=== PATIENT | male | born 1960 | race Caucasian/White ===

== ENCOUNTER 2017-04-26 11:27 | Emergency (ER) | payer MEDICAID ==
[2017-04-26 11:54] VITALS: BP 152/98
--- NOTE | 2017-04-26 12:37 | ERNOTE ---
Medical Problem HPI - Narrative Date of Service: 04/26/17 - General Chief Complaint: Screening, Suture/Wound Time Seen by Provider: 04/26/17 12:30 Source: patient, RN notes reviewed Exam Limitations: no limitations - Immun/Allergies/Home Medications Immunizations: IMMUNIZATION HX Immunizations Up to Date Yes History of Influenza Vaccine No Allergies/Adverse Reactions: Allergies No Known Allergies Allergy (Verified 04/26/17 11:54) Home Medications: HOME MEDICATIONS Albuterol Sulfate/Ipratropium [Duoneb 2.5-0.5MG/3ML Soln] 3 ml IH Q6H PRN #60 nebu 11/22/16 [Last Taken Unknown] Cefdinir [Omnicef] 300 mg PO DAILY 11/22/16 [Last Taken Unknown] Glimepiride 4 mg PO DAILY 11/22/16 [Last Taken Unknown] Ipratropium/Albuterol Sulfate [Combivent Respimat Inhal [place]] 4 gm IH QID 11/22 [Last Taken Unknown] Loratadine/Pseudoephedrine [Claritin-D 24 Hour Tablet] 1 each PO DAILY 11/22/16 [Last Taken Unknown] Nebulizer [Compact Compressor Nebulizer] 1 each MC Q4H #1 kit 11/22/16 [Last Taken Unknown] glipiZIDE [Glipizide Xl] 10 mg PO DAILY 11/22/16 [Last Taken Unknown] metFORMIN HCL [Metformin HCl ER] 1,000 mg PO BID 11/22/16 [Last Taken Unknown] metFORMIN HCL [Metformin HCl ER] 500 mg PO DAILY 11/22/16 [Last Taken Unknown] predniSONE [Prednisone] 2 tab PO DAILY #14 tab 11/22/16 [Last Taken Unknown] predniSONE [Prednisone] 20 mg PO DAILY 11/22/16 [Last Taken Unknown] - History of Present History Narrative: James is a 57-year-old male who presents to the emergency department for concerns about infection in his surgical sites. He underwent a left nephrectomy on April 05 at the [facility] for a renal carcinoma. He reports that his incisions have been healing well with the exception of one laparoscopic wound that appears to be red. He states that he has been feeling well. He denies any fevers or chills. He did contact his surgeon's office today and was directed to come here for evaluation. Review of Systems - Review of Systems Constitutional: Absent: fever, chills, weakness, malaise EYE: Present: no symptoms reported ENT: Present: no symptoms reported Respiratory: Absent: shortness of breath, cough Cardiology: Absent: chest pain, edema Gastrointestinal/Abdominal: Absent: nausea, vomiting, abdominal pain, eating less, drinking less Genitourinary: Present: no symptoms reported Musculoskeletal: Absent: muscle pain, joint pain Skin: Present: change in color. Absent: rash, lesions Neurological: Absent: headache, dizziness/light-headedness Endocrine: Present: no symptoms reported Hematologic/Lymphatic: Present: no symptoms reported Psych: Present: anxiety - Patient's Past Medical History Patient History - Medical: Diabetes Type 2, GERD, Obesity Patient History - Cardiac/Respiratory: COPD, Hypertension Patient History - Cancer: Kidney Patient History - Surgical Procedures: Cancer Surgery - Left nephrectomy, T & A Patient History - Other: None - Social History Living Situations: home Psych History: No pertinent hx Smoking Status: Former smoker Patient requests Smoking Cessation Consult: No Initiate information on Smoking Cessation: No Alcohol Use: occasionally Drug Use: none - Immunizations Immunizations Up to Date: Yes History of Influenza Vaccine: No Physical Exam - Physical Exam General Appearance: Present: wd/wn, alert, no apparent distress, obese Respiratory: Present: no respiratory distress, normal breath sounds, no accessory muscle use, lungs clear Cardiovascular/Chest: Present: regular rate, rhythm, no murmur Gastrointestinal/Abdominal: Present: nondistended, soft Extremity Exam: Present: normal inspection, normal range of motion Neurological Exam: Present: alert, oriented, normal mood/affect, no motor/ sensory deficits Skin Exam: Present: normal color, warm/dry, other - abdominal incisions are all healing well - one laprascopic wound has slightly more surrounding inflammation , no drainage, no induration, not excessively warm to touch ED Progress - Vital Signs Patient's Vital Signs:: I have reviewed the patient's vital signs. Vital Signs: Vital Signs 04/26/17 11:47 Temperature 36.6 C Pulse Rate 112 H Respiratory 16 Rate Blood Pressure 152/98 O2 Sat by Pulse 95 Oximetry - Progress/Reassessment Chief Complaint: Screening, Suture/Wound Progress:: Unchanged Plan - Plan Plan: Reassured patient that the amount of inflammation surrounding the laprascopic wound that he is concerned about is still within the limits of what I would normally expect at this point. Patient has been doing well. Is afebrile. To f/u with his surgeon as scheduled, but discussed indications of worsening condition that would warrant being seen sooner. Departure - Departure Clinical Impression: Encounter for postoperative wound check Disposition: Home Follow Up Needed Condition: Good Additional Instructions: Continue cleaning wounds as directed See your surgeon as scheduled, or follow up before if you have new or worsening symptoms Referrals: Pollo Sepulveda, [Primary Care Provider] -
--- OUTSIDE RECORDS SUMMARY | 2017-04-26 15:23 | XMS REPORT | Continuity of Care Document ---
:1960 Author Organization [facility] ([facility]) Address [address] [place] [address] Phone [phone] Care Team Providers Name Role Phone Pollo Sepulveda Primary Care Provider [phone] Source Comments This disclosure is being made pursuant to the Care Everywhere program, applicable federal and state laws, and may not contain all informaitonavailable regarding this patient.[facility] ([facility]) Active Allergies and Adverse Reactions No Known Allergies Current Medications Prescription Sig. Disp. Refills Start Date End Date Status metFORMIN 1,000 mg TAKE ONE TABLET 2 12/31/2016 Active tablet BY MOUTH IN THE MORNING AND IN THE EVENING COMBIVENT RESPIMAT inhale 1 puff 4 5 12/31/2016 Active 20-100 times daily. april mcg/actuation take additional inhaler puff as needed. not to exceed 6 puffs in 24 hours albuterol-ipratrop inhale 3 0 01/25/2017 Active ium 2.5-0.5 mg/3 milliliters by mL inhalation nebulization solution route 4 times per day glimepiride 4 mg take 2 tablet (8 5 01/14/2017 Active tablet mg) by oral route once daily for 30 days omeprazole PO Take 40 mg by Active mouth daily. loratadine-pseudoe Take 1 tablet by Active phedrine 10-240 mg mouth daily. per XR tablet (24 hour) lisinopril 10 mg Take 1 tablet (10 30 tablet 0 03/15/2017 Active tablet mg total) by mouth daily. OTHER Take 1 tablet by Active mouth 2 times daily. Hempt Extract multivitamin Take 1 tablet by Active tablet mouth daily. budesonide-formote Use 2 Puffs by 10.2 g 11 04/01/2017 Active rol (SYMBICORT) inhalation 2 160-4.5 times daily. mcg/Actuation inhaler docusate 100 mg Take 1 capsule 50 capsule 1 04/08/2017 Active capsule (100 mg total) by mouth 2 times daily. HYDROmorphone 2 mg Take 1-2 tablets 60 tablet 0 04/08/2017 Active tablet (2-4 mg total) by mouth every 4 hours as needed for pain. sennosides 8.6 mg Take 1-2 tablets 50 tablet 1 04/08/2017 Active tablet (8.6-17.2 mg total) by mouth 2 times daily. budesonide Use 2 Puffs by 04/01/20 Discontinued (PULMICORT inhalation 2 17 FLEXHALER) 180 times daily. mcg/Inhalation inhaler Active Problems Problem Noted Date Renal cell carcinoma of left kidney 04/05/2017 HARLAN (obstructive sleep apnea) 04/01/2017 Preoperative cardiovascular examination 03/28/2017 Obesity, morbid, BMI 50 or higher 03/04/2017 COPD (chronic obstructive pulmonary disease) 03/04/2017 Type 2 diabetes mellitus 03/04/2017 Most Recent Encounters Date Type Specialty Providers Description 04/10/2017 Orders/Notes Urology Agustín Marcial Dx: Renal carcinoma, MD Namrata left (Primary Dx) 04/10/2017 Nurse Triage Care Coordination Angella Frye Chief Comp: SHELDON Posada RNcyber engineer Follow-up Call 04/09/2017 Pharmacy Visit 04/05/2017 [facility] Agustín Marcial Dx: Left renal mass - Encounter Inpatient - Adult MD Namrata (Primary Dx) 04/09/2017 04/05/2017 Surgery General Surgery Agustín Marcial ROBOTIC NEPHRECTOMY MD Namrata XI SYSTEM 04/01/2017 Office Visit Pathology Harshil, Chief Comp: Patient Rowdy Suarez MD Reported Reason For Lab Services, Pfp Visit 04/01/2017 Office Visit Med Pulmonary Default, Other Dx: Chronic Billg - Defo obstructive Harshil pulmonary disease, Rowdy Suarez MD unspecified COPD Clinic, type Obstructive Pulmonary Disease 04/01/2017 Hospital Respiratory Therapy Default, Other Dx: Chronic Encounter Billg - Defo obstructive Verena Morin pulmonary diseaseMD unspecified COPD type 04/01/2017 Office Visit Cardiac Rebecca Mckeon Chief Comp: Patient Rehabilitation S, DO Reported Reason For Visit 04/01/2017 Hospital Radiology Wesley Hernandez MD Dx: Dyspnea on Encounter Steffanie Llamas MD 04/01/2017 Ancillary Orders Internal Medicine - Gabriella Cardozo, Dx: Dyspnea on Specialty MD exertion (Primary Dx) 04/01/2017 Orders/Notes Med Pulmonary Martha Jurado, Dx: Chronic MULT AU MATIC OPERATOR obstructive pulmonary disease, unspecified COPD type (Primary Dx) 03/28/2017 Office Visit Heart and Vascular Yecenia Cooper MD Dx: Preoperative cardiovascular examination (Primary Dx) 03/14/2017 Office Visit Pathology Gabriella Cardozo, Chief Comp: Patient MD Reported Reason For Lab Services, Pfp Visit 03/14/2017 Office Visit Internal Medicine - Default, Other Dx: Orthopnea Specialty Billg - Defo (Primary Dx) Gabriella Cardozo MD (Zo06), Msc Surg [facility] 03/11/2017 Office Visit Internal Medicine - Default, Other Chief Comp: Patient Specialty Billg - Defo Reported Reason For (Zo06), Msc Surg Visit [facility] 03/04/2017 Orders/Notes Urology Agustín Marcial Dx: Renal mass MD Namrata (Primary Dx) 02/28/2017 Hospital Radiology Jessica Sifuentes Chief Comp: Patient Encounter MD Johnathon Reported Reason For Visit 02/28/2017 Office Visit Urology Oncology Agustín Marcial Dx: Renal mass MD Namrata (Primary Dx) 02/28/2017 Hospital Anesthesiology Agustín Marcial Dx: Diabetes Encounter MD Namrata mellitus type 2 in Inte, obese (Primary Dx) TAMMY Kidd 02/26/2017 Anesthesia Event General Surgery Teresa Trinidad, MULT AU MATIC OPERATOR 02/19/2017 Hospital Radiology Mario Betancourt, Chief Comp: Patient Encounter Reported Reason For Visit 02/18/2017 Orders/Notes Urology Agustín Marcial MD 02/15/2017 Hospital Radiology Abu-Yousef, Dx: Left renal mass Encounter Gely Rivas MD 02/07/2017 [facility], Chief Comp: Ana Luisa Oneill RN Appointment Info 01/31/2017 Hospital Radiology Abu-Yousef, Dx: Left renal mass Encounter Gely Rivas MD 01/31/2017 Office Visit Urology Oncology Agustín Marcial Dx: Left renal mass MD Namrata (Primary Dx) 01/31/2017 Ancillary Orders Urology Oncology Jack, Dx: Left renal mass Darrick Redman MD (Primary Dx) Immunizations Name Dates Previously Given Next Due Influenza, PF 08/23/2015 Novel Influenza H1N1, nasal 09/23/2009 Pneumococcal Polysaccharide, PPSV23 (Pneumovax 23) 05/15/2013 Tetanus Toxoid, adsorbed 07/28/2016 Social History Tobacco Use Types Packs/Day Years Used Date Former Smoker Cigarettes, Pipe 2 1 Quit: 02/01/2016 Smokeless Tobacco: Never Used Quit: 02/01/2016 Tobacco Cessation:Counseling Given: Yes Comments: Alcohol Use Drinks/Week oz/Week Comments Yes 4 Standard drinks or equivalent Last Filed Vital Signs Vital Sign Reading Time Taken Blood Pressure 136/94 04/09/2017 8:00 AM CDT Pulse 107 04/09/2017 8:00 AM CDT Temperature 36.5 C (97.7 F) 04/09/2017 8:00 AM CDT Respiratory Rate 16 04/09/2017 8:00 AM CDT Height 1.745 m (5' 8.7") 04/05/2017 12:17 PM CDT Weight 150.8 kg (332 lb 7.3 oz) 04/09/2017 6:00 AM CDT Body Mass Index 49.52 04/09/2017 6:00 AM CDT Oxygen Saturation 93% 04/09/2017 8:00 AM CDT Plan of Care Date Type Specialty Providers Description 05/09/2017 Appointment [facility] Nicola Ellis MD [address] [place] [address] [phone] (Fax) Chief Comp: Patient Yanni Harding F, [place] [facility] [address] [place] [address] [phone] (Fax) Reported Reason For Visit 05/09/2017 Appointment Urology Oncology Agustín Marcial MD Chief Comp: Patient [address] [facility] [place] [address] Visit [phone] (Fax) 06/20/2017 Appointment Respiratory Therapy Default, Other Billg Chief Comp : Patient - Defo Reported Reason For [address] [place] [address] [phone] (Fax) 06/20/2017 Appointment Med Pulmonary Default, Other Billg - Defo [address] [place] [address] [phone] (Fax) Chief Comp: Patient Clinic, Obstructive Pulmonary Disease Reported Reason For Visit Health Maintenance Due Date Last Done Comments HCV Screening 1960 Hepatitis B Vaccine (1 of 3 - Primary Series) 1960 Tdap Vaccine 1973 DIABETIC: Cholesterol 1980 Diabetic: Hdl 1980 Diabetic: Ldl 1980 DIABETIC: Microalbumin 1980 DIABETIC: Triglycerides 1980 MMR Vaccine 1980 Colonoscopy 04/10/2012 Prostate Cancer Screening 2012 Pneumococcal Vaccine (2 of 3 - PCV13) 05/15/2014 05/15/2013 DIABETIC: Foot Exam 02/28/2017 DIABETIC: Retinal Eye Exam 02/28/2017 Influenza Vaccine: Seasonal (Season Ended) 2017 08/23/2015 DIABETIC: Hemoglobin A1C 09/13/2017 03/14/2017 Td Vaccine 07/28/2026 07/28/2016 Procedures from Last 3 Months Procedure Name Priority Date/Time Associated Comments Diagnosis OR CASE Routine 04/08/2017 11:20 Left renal mass Results for this AM CDT procedure are in the results section. ROBOTIC NEPHRECTOMY 04/05/2017 2:28 Left renal mass XI SYSTEM PM CDT Results from Last 3 Months BLOOD GLUCOSE, BEDSIDE (04/09/2017 6:16 AM)Only the most recent of14 resultswithin the time period is included. Component Value Range Glucose, Accu-Chek 154(H) 65-99 mg/dL Specimen Blood, capillary OR CASE (04/08/2017 11:20 AM) Narrative Agustín Marcial MD 04/08/2017 11:20 AM Post-Op Procedure Note Operation/Procedure: Robotic Assisted Laparoscopic Left Radical Nephrectomy Intraoperative Renal Ultrasound with Interpretation General Information: Date: 04/05/17 Time: 1428 Location: MAIN OR OR Room: MAIN OR 25 Service: Urology Log ID: [id number] Surgeon: Surgeon(s) and Role: * Agustín Marcial MD - Primary * Sony Patino MD - Resident - Assisting Staff Information: Scrub Nurse: Valery Perkins RN Circulating Nurse: Yadi Lui RN; Lemuel Azevedo RN; Jocy Anders RN; Valery Perkins RN Section Plotter Operator- Scrub: Victor Manuel Morin; Miriam Sutherland; Garry Abreu Anesthesia: General Findings: Ultrasound Intrepretation- 5 cm partially exophytic, partially endophytic, solid left upper pole posterior renal mass Partially exophytic, partially endophytic left upper pole, posterior renal mass Significant amount of intraabdominal and retroperitoneal fat making dissection very difficult. Unable to flip kidney or dissection posterior to tumor due to very superior location and overlying spleen and very difficult location for either robotic partial or open partial thus nephrectomy performed Blood Loss: 150 mL Tourniquet Time: * No tourniquets in log * Implants: Implant Name Type Inv. Item Serial No. Behavioral Health Rn Lot No. LRB No. Used Action STAPLE ENDO GIA45-2.5 ROTICULATOR MULTIFIRE LOADING UNIT - [id number] ENDO GIA45-2.5 ROTICULATOR MULTIFIRE LOADING UNITAUTOSUTURE [id number] Left 1 Implanted STAPLE ENDO GIA45-2.5 ROTICULATOR MULTIFIRE LOADING UNIT - [id number] ENDO GIA45-2.5 ROTICULATOR MULTIFIRE LOADING UNITAUTOSUTURE [id number] Left 1 Implanted STAPLE ENDO GIA45-2.5 ROTICULATOR MULTIFIRE LOADING UNIT - [id number] STAPLE ENDO GIA45-2.5 ROTICULATOR MULTIFIRE LOADING UNIT AUTOSUTURE [id number] Left 1 Implanted Specimens: ID Type Source Tests Collected by Time Destination 1 : Fat on Tumor Surgical Pathology Surgical Pathology Specimen SURGICAL PATHOLOGY EXAM Agustín Marcial MD 04/05/20171914 2 : Left Kidney Surgical Pathology Surgical Pathology Specimen SURGICAL PATHOLOGY EXAM Agustín Marcial MD 04/05/20172028 Complications: None, patient tolerated the procedure well Condition: Stable Operative Report Completion Indications: Tushar Humphrey is a 56 y.o. male with including COPD, HARLAN, Morbid obesity (BMI 50.4), DM2 incidentally found to have a left renal mass on Chest CT done for dyspnea who was found to have a 5.6 cm left upper pole renal mass on dedicated abdominal CT s/p renal mass biopsy which returned with ISUP Grad 3 of 4 renal cell carcinoma. After discussion of his options, he presents now for robotic left partial nephrectomy of his renal mass and there had been discussion of possible need for open surgery or radical nephrectomy. Procedure Details: After informed consent and appropriate marking the patient was taken to the operative theater. General endotracheal anesthesia was induced in the supine position patient had a omar-gastric tube placed that was removed at the end of the case. A 14 Yoruba Bonilla catheter was inserted into the bladder. At this point the patient was placed in a flank position with the left side up. The table was flexed a mild to moderate amount to open the flank. Patient's up arm was supported by a easy2map arm board support. The patient was secured to the table and all pressure points were well padded. At this point the patient was prepped and draped in a normal sterile fashion. A Veress needle was placed at Augustin's point to gain access to the abdomen. The Veress needle was aspirated and irrigated without problem and the drop test was found to be normal. At this point, the Veress needle was removed and a 5 mm Visiport was placed. Inspection of the abdomen demonstrated a single intraperiotoneal adhesion in the left lower quadrant. No intra-abdominal injuries were noted. We were able to place an 8 mm robotic port superior and lateral to the umbilicus for the camera. An 8 mm robotic trocar was placed in the left lower quadrant 8 cm from the prior 8 mm port placement for the right arm. A 15 mm port was placed 8 mm lateral to the right arm and an 8 mm robotic port was placed through the 15 mm port for the 4th arm. The 5 mm port was then replaced with an 8 mm robotic port. A 12 mm Airseal plumber's assistant port was then placed cranial and medial to the camera port. At this point the DaVinci Xi robotic system was docked to the patient. The previously mentioned bowel adhesion was taken down sharply. The descending colon was reflected along the white line of Toldt. A significant amount of intraabdominal and retroperitoneal fat, as well as stool within the colon made dissection more difficult than typical. A 5 mm plumber's assistant port was then placed caudal and medial to the camera port to aid with retraction.We continued to reflect this until we were able to visualize mesenteric fat. Dissection was then performed superiorly up to the superior pole. The spleen was notable for white deposits upon it and a lobular shape. Also, the colon was noted to be adherent to the spleen which kept it tented up. Thus, the splenocolic ligament and other adhesions were taken down but dissection around the superior pole was unable to be accomplished due to the superior and posterior nature of the mass. Intraoperative ultrasound was performed to assess the edge of the mass and normal parenchyma. We then proceeded inferiorly until the tail of the kidney was identified. Gerota's fasia was then opened along the lower pole and the gonadal vein was identified. This dissection was difficult due to the amount of retroperitoneal fat. The ureter was later identified just lateral and superior to the vessels. Dissection proceeded lateraly until the anterior Psoas fascia and sidewall were identified, leaving the gonadal vein down. The fourth arm was used to elevate the inferior pole and allow visualization of the posterior aspect of Gerota's. Dissection was then carried up the left gonadal vein until the left renal vein was encountered. This was dissected from surrounding tissues which revealed the left adrenal vein on the superior aspect. Dissection continued until a window behind the vein was created. The artery was identified just caudal and posterior to the left renal vein. Dissection then continued superior along the adrenal vein. The left adrenal gland was identified and dissected from from the kidney. Dissection continued to the superior pole. Given the superior nature of the mass, the kidney was attempted to be rotated inferiorly and medially to access the postertior aspect of the mass but this proved to be incredibly difficult due to sticky surrounding tissues, large volume of surrounding fat, and very superior location of tumor. Using laparoscopic ultrasound, the tumor margins were again identified. We then turned our attention to exposing the tumor. The upper pole of the kidney was defatted and the overlying fat was sent for pathology. Repeat laparoscopic ultrasound was performed with results as below. At this point, the only way it was felt that the mass would be able to be accessed on all sides for a possible partial resection. The location of tumor and the retroperioneal fat made it so a partial nephrectomy, either robotic or open, would have been increased risk of complications, risk of cutting into tumor, and difficulty with renal repair. Given this, the duration of the procedure at this time, as well as the difficulty with the tumor position and concern for a possible positive margin and renorrhaphy after resection, we elected to proceed with a total nephrectomy robotically. Patient was very deep and at no point did it seem like a open approach would have been better as it would have required a very large incision and the visualization would have been suboptimal. The hilum was again exposed. Using an EndoGIA stapler with 2.5 x 45 staple loads, the renal artery was ligated, followed by the renal vein. Using the 4th arm, the kidney was lifted and the posterior and medial aspects of the kidney were dissected free from the surrounding tissues. A 3rd staple load was placed along the medial aspect of the kidney give possible vasculature within the fatty tissue. The kidney was the able to be completely mobilized along the superior pole. The ureter was then isolated, ligated with 2 Weck clips, and transected between the clips. The kidney was the dissected free from all lateral and superior attachments. The superior renal mass was in close proximetry to the diaphragm and the tumor was dissected off the diaphragm. Once completely free from the surrounding tissues, 4th robotic arm was removed and the kidney was placed into a large Endocatch bag placed through the 15 mm port. Pneumoperitoneum was lowered and good hemostasis was noted. The Airseal port was closed with a Bartolome-Marguerite device and 0 Vicryl suture. The robot was undocked and the ports were removed. The 15 mm port incision was extended medially and inferiorly in the direction of the fascial fibers using electrocautery until the bag was able to be removed from the incision. This incision's fascia was then closed with 2, running looped 0 PDS sutures begun from each apex and tied in the the midline. . All incisions were then irrigated. The port sites were closed with subcuticular 4-0 Monocryl. The extraction incision was closed with 2-0 Vicryl deep dermal sutures and subcuticular 4-0 Monocryl for the skin.20 mL of 0.25% marcaine was injected into all of the incisions. Liquiband was applied to all of the incisions. This concluded the procedure.The patient was awoken for anesthesia and taken to the PACU in stable condition. The patient tolerated the procedure well. There were no complications noted. Radiology report: Ultrasound report: Intraoperative laparoscopic renal ultrasound was undertaken and read by Dr. Marcial. The tumor was found to be approximately 5 cm. It had a solid component only and was solitary. It abutted the renal collecting system. There were no other lesions seen within the kidney. Tumor was mixed endopytic/exophytic and far posterior on the superior pole of the kidney. PLAN: PACU labs Admit to 3RC Clear liquid diet IVF Percocet for pain Colace for constipation Resume home labetalol, monitor for need for other antihypertensives OOB/AMB Sony Patino MD R5 Attending Attestation: I attest to having personally viewed the images and approve the above interpretation. I was present for entire procedure. I edited note as above. Agustín Marcial MD Claims Consultant, Department of Urology [facility] RED BLOOD CELLS DISPENSE FROM BLOOD BANK (04/08/2017 2:14 AM) Component Value Range Blood Coding System [id number] Blood Product Volume 325 Blood Product ABORH B Pos Blood Unit Number [id number] BLOOD DISPENSE STATUS RET Blood Product Type Red Blood Cells Blood Product Code U8196P03 Blood Coding System [id number] Blood Product Volume 325 Blood Product ABORH B Pos Blood Unit Number [id number] BLOOD DISPENSE STATUS RET Blood Product Type Red Blood Cells Blood Product Code [id number] ECG - EKG 12 LEAD (04/07/2017 12:01 PM)Only the most recent of2 resultswithin the time period is included. Component Value Range ECG SEVERITY - OTHERWISE NORMAL ECG - VENT. RATE 110 bpm RR 545 ms P-R INTERVAL 160 ms QRSD INTERVAL 82 ms QT INTERVAL 300 ms QTC INTERVAL 406 ms P AXIS 45 degrees QRS AXIS 39 degrees T WAVE AXIS 35 degrees REPORT SINUS TACHYCARDIA No significant change Interpreting Physician: PADDY CURTIS MD CHEM 7 PANEL (04/07/2017 6:58 AM)Only the most recent of3 resultswithin the time period is included. Component Value Range Sodium 133(L) 135-145 mEq/L Chloride 94(L) 95-107 mEq/L Potassium 4.3 3.5-5.0 mEq/L CO2 26 22-29 mEq/L BUN 8(L) 10-20 mg/dL Creatinine 1.4(H)Comment: 0.6-1.2 mg/dL Creatinine switched to enzymatic method on 04/10/2011.GFR equation switched to IDMS-traceable MDRD equation on 04/10/2011. Calculated GFR values are not valid in clinical settings where serum creatinine is changing. Glucose 175(H)Comment: 65-99 mg/dL The Expert Committee on the Diagnosis and Classification of Diabetes has defined impaired fasting glucose as greater than or equal to 100 mg/dL but less than 126 mg/dL.(Diabetes Care 28 (Suppl 1)S41,2005) Anion Gap 13 <17 mEq/L Calculated GFR 53(L) >60 mL/min/1.73 m2 Specimen Blood CBC (COMPLETE BLOOD COUNT) (04/07/2017 6:58 AM)Only the most recent of4 resultswithin the time period is included. Component Value Range WBC Count 14.6(H) 3.7-10.5 K/MM3 RBC Count 4.98 4.50-6.20 M/MM3 Hemoglobin 14.2 13.2-17.7 g/dL Hematocrit 43 40-52 % MCV (Mean Corpuscular Volume) 87 82-99 FL MCH (Mean Corpuscular Hemoglobin) 29 25-35 PG MCHC (Mean Corpuscular Hemoglobin Concentration) 33 32-36 % Platelet Count 287 150-400 K/MM3 MPV (Mean Platelet Volume) 9.6 9.4-12.3 FL RBC Dist Width-STD 40.9 35.1-43.9 FL RBC Distrib Width 12.9 9.0-14.5 % Nucleated RBC 0 /100 WBC Specimen Whole Blood SURGICAL PATHOLOGY EXAM (04/05/2017 7:15 PM)Only the most recent of2 resultswithin the time period is included. Component Value Range Case Report Surgical Pathology Case: [id number] Authorizing Provider:Agutsín Marcial MDCollected: 04/05/2017 07:15 PM Ordering Location: Main OR Received:04/08/2017 07:50 AM Pathologist: Gurvinder Harrell MD Specimens: A) - Tissue, specify, Fat on Tumor B) - Kidney, Left Kidney Diagnosis A. Soft tissue, fat on tumor, excision: Benign adipose tissue with no tumor identified. B. Kidney, left, nephrectomy: Renal cell carcinoma, clear cell type, WHO/International Society of Urological Pathology (ISUP) grade 3 of 4. Two foci 4.9 cm and 1.5 cm in greatest dimension, both confined to renal parenchyma. No perineural or lymphovascular space invasion. All surgical margins free of tumor. I have personally reviewed this case and edited the report as necessary. Gross Description A.Received fresh in a container labeled with Tushar Humphrey, hospital number, and "Fat on Tumor" is a 2.8 x 1.8 x 0.7 cm aggregate of yellow, lobular fibroadipose tissue.The tissue is entirelysubmitted in A1. ESF/tkr B. Received in formalin in a container labeled with Tushar Humphrey, [facility] number, and "Left Kidney" is a 730 gram, 22.1 x 9.6 x 6.9 cm nephrectomy with attached 3.2 cm in length x 0.5 cm in diam eter ureter.There is an abundant amount of perinephric fat which is inked blue.The kidney (16.1 x 7.4 x 4.2 cm) has a 4.9 x 4.3 x 4.2 cm yellow- orange to red-brown, variegated, solid and encap sulated mass located at the superior pole, 10.9 cm from the ureter margin and 6.8 cm from the renal vein margin.The mass has a central dsouza-justice, stellate area of discoloration with no significant necrosis identified.The mass is encapsulated and appears to be confined to the renal parenchyma with no gross extension into the renal fat, calyces or pelvis.The mass abuts the renal capsule, however there is no gross extension through the capsule into the associated perinephric fat.Gerota's fascia is present and the mass is located approximately 0.2 cm from the fascial plane.Addit ionally, there is a 1.5 x 0.9 x 0.7 cm hemorrhagic lesion located in the inferior pole, 7.8 cm from the renal vein margin and 10.3 cm from the ureter margin.This hemorrhagic lesion appears to be e ncapsulated and abuts the renal capsule with no gross invasion.The uninvolved renal parenchyma is justice-brown with well delineated medullary pyramids and an average cortical thickness of 0.7 cm. The renal sinus fat is comprised of yellow, lobular fibroadipose tissue with no gross lesions identified.The renal pelvis and ureter are both lined by pink-justice, smooth mucosa.No adrenal gland or lymph nodes are identified.Sections submitted: B1: ureter and vascular margins B2: tumor to renal capsule and fascia B3: tumor to renal pelvis in area closest to renal sinus fat B4: additional sections of tumor B5-B6: hemorrhagic lesion B7: uninvolved kidney ESF/tkr Microscopic Description Microscopic examination performed and supports the diagnosis. Performed by: Yosvany Simeon M.D. 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 Sarcomatoid Features:Not identified Histologic Grade (Mary Anne Nuclear Grade):G3: Nuclei very irregular, approximately 20 microns; nucleoli large and prominent EXTENT Tumor Size (largest tumor if multiple):Greatest dimension (cm): 4.9 cm Microscopic Tumor Extension:Tumor limited to kidney MARGINS Margin Status:Margins uninvolved by invasive carcinoma ACCESSORY FINDINGS Tumor Necrosis (any amount):Not identified Lymph-Vascular Invasion:Not identified STAGE (pTNM) TNM Descriptors:m (multiple primary tumors) Primary Tumor (pT):pT1b: Tumor more than 4 cm but not more than 7 cm in greatest dimension, limited to the kidney Regional Lymph Nodes (pN):pNX: Regional lymph nodes cannot be assessed Status of Regional Lymph Nodes:No nodes submitted or found Distant Metastasis (pM):Not applicable ADDITIONAL NON-TUMOR Pathologic Findings in Nonneoplastic Kidney:None identified Optimal tissue block for molecular The optimal tissue block for molecular studies on tumor is: B2 studies Specimen Surgical Pathology - Tissue, specify; Surgical Pathology - Kidney GLUCOSE ([facility]) (04/05/2017 7:05 PM) Component Value Range Glucose, Whole Blood 207(H) 65-99 mg/dL Specimen Whole Blood CHLORIDE ([facility]) (04/05/2017 7:05 PM) Component Value Range Chloride, Whole Blood 104 95-107 mEq/L Specimen Whole Blood POTASSIUM ([facility]) (04/05/2017 7:05 PM) Component Value Range Potassium, Whole Blood 5.3(H)Comment: 3.5-5.0 mEq/L Sample run on whole blood.Hemolysis is not measured. Specimen Whole Blood SODIUM ([facility]) (04/05/2017 7:05 PM) Component Value Range Sodium, Whole Blood 136 135-145 mEq/L Specimen Whole Blood LACTIC ACID, WHOLE BLOOD ([facility]) (04/05/2017 7:05 PM) Component Value Range Lactic Acid, Whole Blood 1.4Comment: 0.5-2.0 mEq/L Glycolate, the principle toxic metabolite of ethylene glycol, can cause artifactual elevation of measured lactate. Specimen Whole Blood HEMOGLOBIN& CALCULATED HEMATOCRIT - ([facility]) (04/05/2017 7: 05 PM) Component Value Range Hemoglobin - CCL 15.0 13.2-17.7 g/dL Hematocrit (Calc) - CCL 46 40-52 % Specimen Whole Blood CALCIUM, IONIZED ([facility]) (04/05/2017 7:05 PM) Component Value Range Ionized Calcium 4.4 3.8-5.2 mg/dL Specimen Whole Blood ARTERIAL BLOOD GAS ([facility]) (04/05/2017 7:05 PM) Component Value Range pH, Arterial 7.36 7.35-7.45 pCO2, Arterial 48(H) 35-45 torr pO2, Arterial 141(H) 80-90 torr Base Excess, Arterial 1 -2-2 mEq/L Bicarbonate, Arterial 27(H) 22-26 mEq/L Total CO2, Arterial 28 24-32 mEq/L Temperature, Arterial 37.0 Degrees C Anion Gap 5 <17 mEq/L Specimen Whole Blood TYPE AND SCREEN (BLOOD TYPE(ABORH) AND RBC ANTIBODY SCREEN) (04/05/2017 1:43 PM ) Component Value Range ABORH B Positive Specimen Expiration Date 2017-04-08 Antibody Screen Negative Specimen Blood DIFFERENTIAL (04/01/2017 11:02 AM) Component Value Range % Neutrophils-Auto Diff 69.0 % Neutrophils-Auto Diff 7850(H) 3906-6736 /MM3 % Lymphocytes-Auto Diff 22.5 % Lymphocytes-Auto Diff 2560 875-3300 /MM3 % Monocytes-Auto Diff 6.5 % Monocytes-Auto Diff 740 130-860 /MM3 % Eosinophils-Auto Diff 1.1 % Eosinophils-Auto Diff 130 40-390 /MM3 % Basophils 0.5 % Basophils-Auto Diff 60 10-136 /MM3 % Immature Granulocytes-Auto Diff 0.4 % Immature Granulocytes-Auto Diff 50 /MM3 Specimen Whole Blood CBC (COMPLETE BLOOD COUNT) (04/01/2017 11:02 AM) Component Value Range WBC Count 11.4(H) 3.7-10.5 K/MM3 RBC Count 5.34 4.50-6.20 M/MM3 Hemoglobin 15.5 13.2-17.7 g/dL Hematocrit 46 40-52 % MCV (Mean Corpuscular Volume) 87 82-99 FL MCH (Mean Corpuscular Hemoglobin) 29 25-35 PG MCHC (Mean Corpuscular Hemoglobin Concentration) 34 32-36 % Platelet Count 330 150-400 K/MM3 MPV (Mean Platelet Volume) 9.1(L) 9.4-12.3 FL RBC Dist Width-STD 40.4 35.1-43.9 FL RBC Distrib Width 12.9 9.0-14.5 % Nucleated RBC 0 /100 WBC Specimen Whole Blood CBC WITH DIFFERENTIAL (04/01/2017 11:02 AM) Specimen Whole Blood Narrative The following orders were created for panel order CBC WITH DIFFERENTIAL. Procedure Abnormality Status --------- ------ CBC (COMPLETE BLOOD COUNT)[[id number]] AbnormalFinal result DIFFERENTIAL[[id number]] AbnormalFinal result Please view results for these tests on the individual orders. ALPHA 1 ANTITRYPSIN (04/01/2017 11:02 AM) Component Value Range Alpha1 AT 113 90-200 mg/dL Specimen Blood PULMONARY FUNCTION TEST (PFT) (04/01/2017 9:33 AM) Component Value Range FVC Predicted 4.70 0.05-9.99 Liters FVC 2.51 0 - 12 Liters FVC %Predicted 53 0-300 % FVC Post 3.27 0 - 12 Liters FVC % Predicted Post 69 0-300 % FVC % Chng 30 0-300 % FEV1 Predicted 3.62 0.05-9.99 Liters FEV1 1.22 0 - 12 Liters FEV1% Predicted 34 0-300 % FEV1 Post BD 1.77 0 - 12 Liters FEV1 % Pred Post 49 0-300 % FEV1 % Chng 45 0-300 % FEV1/FVC Predicted 77 1-99 % FEV1/FVC 49 0 - 12 % FEV1/FVC Post 54 0 - 12 % FEF 25-75% Predicted 3.14 0-12 L/sec FEF 25-75% 0.37 0-12 L/sec FEF 25-75% %Pre Predicted 12 0-300 % FEF 25-75% Post 0.66 0-12 L/sec FEF 25-75% %Post Predicted 21 0-300 % FEF 25-75% Chng 79 0-300 % PEF Predicted 9.28 0-18 L/sec PEF Pre BD 5.48 0-18 L/sec PEF % Pre Predicted 59 0-300 % PEF Post BD 5.91 0-18 L/sec PEF %Post Predicted 64 0-300 % PEF %CHNG 8 0-300 % PIF PRE BD 4.53 0-18 L/sec PIF POST BD 5.46 0-18 L/sec PIF %CHNG 20 0-300 % FEV6 PRE 2.20 0 - 12 Liters MVV Predicted 145 0-300 L/min VC PREDICTED 4.70 0.05-9.99 Liters TLC Predicted 6.39 0.05-11.99 Liters RV Predicted 2.17 0.05-9.99 Liters RV/TLC Predicted 35 0-300 % FRC PL Predicted 2.41 0.05-9.99 Liters DLCO Predicted 29.2 0.05-99.99 mL/mmHg/min DLCO 22.0 mL/mmHg/min DLCO % Predicted 75 0-300 % DLCO ADJ Predicted 29.2 1-2 mL/mmHg/min DLCO Adj 22.0 1-2 mL/mmHg/min DLCO Adj % Predicted 75 0-300 % VA PRE BD 4.07 Liters PI MAX Predicted 113 cmH2O PET PHARMACOLOGIC STRESS ECG, RESIDENT (04/01/2017 8:53 AM)PET MYOCARDIAL PERFUSION REST& STRESS ([id number]) (04/01/2017 8:53 AM) Impressions Impression: 1. Normal stress myocardial perfusion with no evidence of inducible hypoperfusion; LVEF=58%. 2. ECG interpretation is reported separately. Narrative Procedure: PET MYOCARDIAL PERFUSION REST & STRESS (59025) Indication: Dyspnea on exertion; 56 years old Male. Radiopharmaceuticals and other administered agents: 1. Rubidium-82 (Rb-82) 40 mCi IV in left antecubital fossa at 08:23 hrs (rest). 2. Rb-82 40 mCi IV at 08:34 hrs (stress). 3. Regadenoson 0.4 mg IV infusion at 08:34 hrs. Technique: Resting myocardial perfusion PET-CT (Positron Emission Tomography - Computed Tomography) images were acquired upon intravenous injection of Rb-82. Stress image acquisition then began with Regadenoson IV infusion and subsequent IV administration of the Rb-82 stress dose thirty seconds later. Low dose CT images were used to construct attenuation corrected stress and rest cardiac PET images, which were interpreted in left ventricular (LV) short, vertical long, and horizontal long axis orientations. Comparison: No relevant prior exams are available for comparison. Findings: Stress ECG findings will be reported separately; preliminary review of baseline ECG tracing revealed no high degree AV block. After Regadenoson, patient reported transient shortness of breath. Baseline heart rate of 97 bpm plateaued at 112 bpm. Blood pressure was 138/84 mm Hg at rest and plateaued at 125/79 mm Hg. Normal myocardial uptake with no evidence of perfusion defects. ECG gated images show no regional LV wall motion abnormalities. Estimated ejection fraction (LVEF) is 56% at rest and 58% following Regadenoson stress. End-diastolic volumes (LVEDV) are 107 mL at rest and 118 mL following Regadenoson stress. CT images show mild coronary calcifications in the RCA distribution. Partially visualized known left renal mass. Procedure Note Danilo, Incoming Imaging Results - SatApril 01, 2017 2:53 PM CDT Procedure: PET MYOCARDIAL PERFUSION REST & STRESS (28710) Indication: Dyspnea on exertion; 56 years old Male. Radiopharmaceuticals and other administered agents: 1. Rubidium-82 (Rb-82) 40 mCi IV in left antecubital fossa at 08:23 hrs (rest). 2. Rb-82 40 mCi IV at 08:34 hrs (stress). 3. Regadenoson 0.4 mg IV infusion at 08:34 hrs. Technique: Resting myocardial perfusion PET-CT (Positron Emission Tomography - Computed Tomography) images were acquired upon intravenous injection of Rb-82. Stress image acquisition then began with Regadenoson IV infusion and subsequent IV administration of the Rb-82 stress dose thirty seconds later. Low dose CT images were used to construct attenuation corrected stress and rest cardiac PET images, which were interpreted in left ventricular (LV) short, vertical long, and horizontal long axis orientations. Comparison: No relevant prior exams are available for comparison. Findings: Stress ECG findings will be reported separately; preliminary review of baseline ECG tracing revealed no high degree AV block. After Regadenoson, patient reported transient shortness of breath. Baseline heart rate of 97 bpm plateaued at 112 bpm. Blood pressure was 138/84 mm Hg at rest and plateaued at 125/79 mm Hg. Normal myocardial uptake with no evidence of perfusion defects. ECG gated images show no regional LV wall motion abnormalities. Estimated ejection fraction (LVEF) is 56% at rest and 58% following Regadenoson stress. End-diastolic volumes (LVEDV) are 107 mL at rest and 118 mL following Regadenoson stress. CT images show mild coronary calcifications in the RCA distribution. Partially visualized known left renal mass. IMPRESSION Impression: 1. Normal stress myocardial perfusion with no evidence of inducible hypoperfusion; LVEF=58%. 2. ECG interpretation is reported separately. NT-PROBNP (03/14/2017 2:04 PM) Component Value Range NT-ProBNP 12Comment: 0-138 pg/mL Reference ranges in adults reflect 95th percentiles for NT-pro-BNP levels in patients without congestive heart failure (CHF). Pediatric reference ranges for patients 18 years and younger are from [place] et al. Pediatr Cardiol 30:3-82008. Age Reference Range (pg/mL) Pediatric (boys and girls): 0-30 days:263 - 6500 1 month-11 months: 37 - 1000 12 months-35 months: 39 -675 3 years to 6 years:23 -327 7 years to 14 years: 10 -242 15 years to 18 years: 6 -207 Adult Males: 19-44 years: 0 -93 45-54 years: 0 - 138 55-64 years: 0 - 177 65-74 years: 0 - 229 75 years or older: 0 - 852 Adult Females: 19-44 years: 0 - 178 45-54 years: 0 - 192 55-64 years: 0 - 226 65-74 years: 0 - 353 75 years or older: 0 - 624 For adult chronic CHF patients according to [place] [employer] (NYHA) Functional Class for NT-proBNP levels in pg/mL: [id number] Mean percentile percentile Class I: [id number] Class II:[id number] Class III: [id number] Class IV:[id number] Among patients with dyspnea, NT-proBNP is highly sensitive for the detection of acute CHF. In addition, a NT-proBNP < 300 pg/mL effectively rules out acute CHF, with 99% negative predictive value. Elevations in NT-proBNP levels may be observed in states other than left ventricular congestive failure including: acute coronary syndromes, right heart strain/failure (including pulmonary embolism an d cor pulmonale), critical illness, and renal failure. Falsely low NT-proBNP in CHF patients may be observed in increased body mass index. Specimen Blood HEMOGLOBIN A1C (03/14/2017 2:04 PM) Component Value Range Hemoglobin A1c 8.4(H)Comment: 4.8-6.0 % Glycemic Control Guidelines: Non-diabetic <6% Goal <7% Therapeutic Action >8% Estimated Average Glucose 194Comment: mg/dL The estimated average glucose (eAG) calculated from the HbA1c changed on 21/07.See Laboratory Bulletins in the Department of Pathology Laboratory Services Handbook for a full discussion.Not e that the new calculated glucose will now be lower.The A1c result is unchanged. Specimen Whole Blood CHEST- PA& LATERAL (02/28/2017 2:52 PM) Impressions Impression: NORMAL EXAM Narrative Procedure: CHEST- PA & LATERAL Clinical Indication: Renal mass, preoperative Technique: PA and lateral chest radiograph Comparison: None. Findings: The cardiomediastinal silhouette and pulmonary vasculature are normal. The lungs are clear. There are no pneumothoraces or effusions. The remainder of the study is unremarkable for the patient's age.Linear atelectasis seen in the left lower lobe. Procedure Note Danilo, Incoming Imaging Results - Theresa Feb 28, 2017 5:44 PM CDT Procedure: CHEST- PA & LATERAL Clinical Indication: Renal mass, preoperative Technique: PA and lateral chest radiograph Comparison: None. Findings: The cardiomediastinal silhouette and pulmonary vasculature are normal. The lungs are clear. There are no pneumothoraces or effusions. The remainder of the study is unremarkable for the patient's age. Linear atelectasis seen in the left lower lobe. IMPRESSION Impression: NORMAL EXAM URINE CULTURE, ROUTINE AEROBIC (02/28/2017 2:32 PM) Component Value Range Quantitative Culture No growth at 12/999 dilution Specimen Culture - Urine, Midstream clean catch EXTERNAL CT - STORE ONLY (02/19/2017 7:05 AM)US GUIDED NEEDLE BIOPSY, RENAL ( [id number]) (02/15/2017 10:26 AM) Impressions Impression: 1. Successful ultrasound-guided core biopsy of left renal mass without immediate complication. --- Final --- Narrative [facility] Department of Radiology Ultrasound Division [address] [place] [address] ULTRASOUND REPORT NAME:TUSHAR HUMPHREY Date of Service: 02/15/2017 MRN NO.: [id number] Date: 02/15/2017 Patient's : 1960 Resident/Tech: [id number] Sanam Jaffe Patient's Age: 56 yearsReferring MD:DARRICK BUTLER Indication: Biopsy of left renal mass. Technique: US guided left renal core biopsy. Comparison: Ultrasound. 01/31/2017. Findings: Kidney Biopsy: A written informed consent was obtained after the procedure was discussed with the patient. A timeout procedure was performed. The entry site over the left kidney was localized using ultrasound guidance. The skin was then prepared and draped in the standard sterile fashion. 17 mL was used to infiltrate the overlying skin and abdominal wall. 4 passes were made with 18 gauge core biopsy needles. After confirming adequacy of the specimens, the patient was reexamined by ultrasound. Dr. Riojas was present in the room for the entire procedure. Complications: There were no complications. The patient tolerated the procedure well. Monitoring: The patient will be monitored in Radiology waiting area for 3 hours and will be given the standard instruction sheet before discharge. Preprocedure EH=894/93, KK=833 ; Postprocedure TY=052/91, LG=337. Procedure Note Danilo, Incoming Imaging Results - SatFeb 15, 2017 11:00 AM CDT [facility] Department of Radiology Ultrasound Division [address] [place] [address] ULTRASOUND REPORT NAME: TUSHAR HUMPHREY Date of Service: 02/15/2017 MRN NO.: [id number] Review Date: 02/15/2017 Patient's : 1960 Resident/Tech: [id number] Sanam Jaffe Patient's Age: 56 years Referring MD: DARRICK BUTLER Indication: Biopsy of left renal mass. Technique: US guided left renal core biopsy. Comparison: Ultrasound. 01/31/2017. Findings: Kidney Biopsy: A written informed consent was obtained after the procedure was discussedwith the patient. A timeout procedure was performed. The entry site over theleft kidney was localized using ultrasound guidance. The skin was then preparedand draped in the standard sterile fashion. 17 mL was used to infiltrate the overlying skin and abdominal wall. 4 passes were made with 18 gauge core biopsy needles. After confirming adequacy of the specimens, the patientwas reexamined by ultrasound. Dr. Riojas was present in the room for the entire procedure. Complications: There were no complications. The patient tolerated the procedure well. Monitoring: The patient will be monitored in Radiology waiting area for 3 hours and will be given the standard instruction sheet before discharge. Preprocedure KX=888/93, MY=554 ; Postprocedure IV=949/91, LZ=611. IMPRESSION Impression: 1. Successful ultrasound-guided core biopsy of left renal mass without immediate complication. --- Final --- US RETROPERITONEAL LIMITED (01/31/2017 5:00 PM) Impressions Impression: 1. Superior pole left renal mass, highly concerning for renal cell cancer. This is amenable for US guided biopsy. --- Final --- Narrative [facility] Department of Radiology Ultrasound Division [address] [place] [address] ULTRASOUND REPORT NAME:TUSHAR HUMPHREY Date of Service: 01/31/2017 MRN NO.: [id number] Date: 01/31/2017 Patient's : 1960 Resident/Tech: [id number] Tab Ta Patient's Age: 56 yearsReferring MD:DARRICK BUTLER Indication: Evaluate left renal mass and determine whether this would be amenable to biopsy. Technique: Renal Limtied Left Kidney. Comparison: Outside CT not available. Findings: Kidney: + + + + :Structure :Features:Left: + + + + :Kidney:Present/Absent:Present : + + + + ::Size (cm) :16.4 x 7.0 x 7.8: + + + + ::Location:Normal: + + + + ::Shape :Normal: + + + + :Cortex:Echogenicity:Normal: + + + + ::Thickness :Normal: + + + + :Renal Pelvis::Normal. : + + + + ::: : + + + + + + + + + + :Left Kidney:Location :Size (cm):Echogenicity:Characteristics: + + + + + + :Lesion 1 :left upper pole:5.2 x 5.5 x 5.6:heterogenous:solitary : + + + + + + Procedure Note Danilo, Incoming Imaging Results - Theresa Jan 31, 2017 6:13 PM [facility] Department of Radiology Ultrasound Division [address] [place] [address] ULTRASOUND REPORT NAME: TUSHAR HUMPHREY Date of Service: 01/31/2017 MRN NO.: [id number] Review Date: 01/31/2017 Patient's : 1960 Resident/Tech: [id number] Tab Ta Patient's Age: 56 years Referring MD: DARRICK BUTLER Indication: Evaluate left renal mass and determine whether this would be amenable to biopsy. Technique: Renal Limtied Left Kidney. Comparison: Outside CT not available. Findings: Kidney: + + + + :Structure :Features : Left : + + + + :Kidney :Present/Absent:Present : + + + + : :Size (cm) :16.4 x 7.0 x 7.8: + + + + : :Location :Normal : + + + + : :Shape :Normal : + + + + :Cortex :Echogenicity :Normal : + + + + : :Thickness :Normal : + + + + :Renal Pelvis: :Normal. : + + + + : : : : + + + + + + + + + +: Left Kidney:Location :Size (cm):Echogenicity:Characteristics: + + + + + +: Lesion 1 :left upper pole:5.2 x 5.5 x 5.6:heterogenous:solitary: + + + + + + IMPRESSION Impression: 1. Superior pole left renal mass, highly concerning for renal cell cancer. This is amenable for US guided biopsy. --- Final --- PT/INR (PROTHROMBIN TIME/INR) VENOUS (01/31/2017 3:55 PM) Component Value Range PT (Prothrombin Time) 11 9-12 secs INR 1.0 <4.0 Specimen Blood COMPREHENSIVE METABOLIC PANEL (CMP) (01/31/2017 3:55 PM) Component Value Range Sodium 140 135-145 mEq/L Potassium 4.3 3.5-5.0 mEq/L Chloride 96 95-107 mEq/L CO2 31(H) 22-29 mEq/L Anion Gap 13 8-18 mEq/L BUN 15 10-20 mg/dL Creatinine 0.8Comment: 0.6-1.2 mg/dL Creatinine switched to enzymatic method on 04/10/2011.GFR equation switched to IDMS-traceable MDRD equation on 04/10/2011. Calculated GFR values are not valid in clinical settings where serum creatinine is changing. Glucose 181(H)Comment: 65-99 mg/dL The Expert Committee on the Diagnosis and Classification of Diabetes has defined impaired fasting glucose as greater than or equal to 100 mg/dL but less than 126 mg/dL.(Diabetes Care 28 (Suppl 1)S41,2005) Calcium 9.5 8.5-10.5 mg/dL Total Protein 7.4 6.0-8.0 g/dL Albumin 4.3 3.4-4.8 g/dL AST 23Comment: 0-40 U/L Adult reference ranges updated on 10/27/13 at 830am ALP 71 40-129 U/L Bilirubin Total 0.2 <=1.2 mg/dL ALT 35Comment: 0-41 U/L The upper limit of normal for alanine aminotransferase (ALT) reference ranges for adults is controversial with some authorities recommending limit as low as 30 U/L for males and 19 U/L for females. Th ere is increased incidence of subclinical liver disease (e.g., early steatohepatitis) in patients with ALT values in the range of 31-41 U/L for males and 20-33 U/L for females. ALT values should alway s be interpreted in conjunction with clinical history, physical examination findings, and, if applicable, data from other diagnostic tests. Calculated GFR >90 >60 mL/min/1.73 m2 Specimen Blood
== END 2017-04-26 12:43 | disposition home or self-care (01) ==
LOC: ER 11:27
DX: Z03.89 Encounter for observation for other suspected diseases and conditions ruled out (principal); Z90.5 Acquired absence of kidney; Z85.528 Personal history of other malignant neoplasm of kidney

== ENCOUNTER 2017-05-01 12:35 | Emergency (ER) | payer MEDICAID ==
[2017-05-01 12:44] VITALS: BP 155/95
--- NOTE | 2017-05-01 13:08 | ERNOTE ---
Medical Problem HPI - Narrative Date of Service: 05/01/17 - General Chief Complaint: Screening, Suture/Wound Time Seen by Provider: 05/01/17 12:57 Source: patient, RN notes reviewed Exam Limitations: no limitations - Immun/Allergies/Home Medications Immunizations: IMMUNIZATION HX Immunizations Up to Date Yes History of Influenza Vaccine No Allergies/Adverse Reactions: Allergies No Known Allergies Allergy (Verified 05/01/17 12:44) Home Medications: HOME MEDICATIONS Ipratropium/Albuterol Sulfate [Combivent Respimat Inhal [place]] 4 gm IH QID 11/22 [Last Taken Unknown] Loratadine/Pseudoephedrine [Claritin-D 24 Hour Tablet] 1 each PO DAILY 11/22/16 [Last Taken Unknown] Nebulizer [Compact Compressor Nebulizer] 1 each MC Q4H #1 kit 11/22/16 [Last Taken Unknown] glipiZIDE [Glipizide Xl] 10 mg PO DAILY 11/22/16 [Last Taken Unknown] metFORMIN HCL [Metformin HCl ER] 1,000 mg PO BID 11/22/16 [Last Taken Unknown] Budesonide/Formoterol Fumarate [Symbicort 160-4.5 Mcg Inhaler] 10.2 gm IH BID [Last Taken Unknown] Omeprazole 40 mg PO DAILY 05/01/17 [Last Taken Unknown] - History of Present History Narrative: James is a 57 y/o male who presents to the ED for concerns about infection in his surgical wounds from his nephrectomy on 04/05/17. I also saw the patient on for the same issue. He has a small amount of redness surrounding one of his laparascopy wounds. He reports that this is worse today. He has not been actually washing the surgical sites when he showers, but is letting soapy water run over the wounds as he was instructed "not to touch them" by his surgeon. He sees his surgeon at [facility] for follow-up next week. He denies any fevers or chills. He reports that he is feeling fine. Review of Systems - Review of Systems Constitutional: Absent: fever, chills, diaphoresis, malaise, decreased activity level EYE: Present: no symptoms reported ENT: Present: no symptoms reported Respiratory: Absent: shortness of breath, cough Cardiology: Present: no symptoms reported Gastrointestinal/Abdominal: Absent: nausea, vomiting, abdominal pain, eating less, drinking less Genitourinary: Present: no symptoms reported Musculoskeletal: Absent: muscle pain, joint pain Skin: Present: change in color. Absent: rash, lumps Neurological: Absent: headache, dizziness/light-headedness Endocrine: Present: no symptoms reported Hematologic/Lymphatic: Present: no symptoms reported Psych: Present: anxiety - Patient's Past Medical History Patient History - Medical: Diabetes Type 2, GERD, Obesity Patient History - Cardiac/Respiratory: COPD, Hypertension Patient History - Cancer: Kidney Patient History - Surgical Procedures: Cancer Surgery, T & A Patient History - Other: None - Social History Living Situations: home Psych History: No pertinent hx Smoking Status: Former smoker Alcohol Use: occasionally Drug Use: none - Immunizations Immunizations Up to Date: Yes History of Influenza Vaccine: No Physical Exam - Physical Exam General Appearance: Present: wd/wn, alert, no apparent distress, obese Respiratory: Present: no respiratory distress, no accessory muscle use Cardiovascular/Chest: Present: normal peripheral pulses Gastrointestinal/Abdominal: Present: nontender, nondistended, soft Extremity Exam: Present: normal inspection, normal range of motion, no edema Neurological Exam: Present: alert, oriented, normal mood/affect, no motor/ sensory deficits Skin Exam: Present: normal color, warm/dry, other - mild erythema surrounding all surgical wounds, no induration or excessive warmth, small amount of crusted serous drainage from the wound in question ED Progress - Vital Signs Patient's Vital Signs:: I have reviewed the patient's vital signs. Vital Signs: Vital Signs 05/01/17 12:38 Temperature 36.8 C Pulse Rate 117 H Respiratory 16 Rate Blood Pressure 155/95 O2 Sat by Pulse 95 Oximetry - Progress/Reassessment Chief Complaint: Screening, Suture/Wound Progress:: Unchanged Plan - Plan Plan: Reassured patient that the amount of redness around the wounds is still within what would be considered normal at this point in the healing process. Instructed to apply soap to his hands and gently scrub the wounds when he showers, and to apply a light coat of moisturizer around the incisions. To f/u with surgeon next week. Departure - Departure Clinical Impression: Encounter for postoperative wound check Disposition: Home Follow Up Needed Condition: Good Additional Instructions: Wash wounds with soap and water with your hands when showering Apply a moisturizer once or twice a day (vaseline, Aquaphor, Cetaphil - all are good) See your surgeon as scheduled or return for any concerns Referrals: Pollo Sepulveda DO [Primary Care Provider] -
--- OUTSIDE RECORDS SUMMARY | 2017-05-01 13:12 | XMS REPORT | Continuity of Care Document ---
:1960 Author Organization [facility] ([facility]) Address [address] [place] [address] Phone [phone] Care Team Providers Name Role Phone Pollo Sepulveda Primary Care Provider [phone] Source Comments This disclosure is being made pursuant to the Care Everywhere program, applicable federal and state laws, and may not contain all informaitonavailable regarding this patient.[facility] ([facility]) Active Allergies and Adverse Reactions No Known Allergies Current Medications Prescription Sig. Disp. Refills Start Date End Date Status metFORMIN 1,000 mg TAKE ONE TABLET BY 2 12/31/2016 Active tablet MOUTH IN THE MORNING AND IN THE EVENING COMBIVENT RESPIMAT inhale 1 puff 4 5 12/31/2016 Active 20-100 mcg/actuation times daily. may inhaler take additional puff as needed. not to exceed 6 puffs in 24 hours albuterol-ipratropiu inhale 3 0 01/25/2017 Active m 2.5-0.5 mg/3 mL milliliters by inhalation solution nebulization route 4 times per day glimepiride 4 mg take 2 tablet (8 5 01/14/2017 Active tablet mg) by oral route once daily for 30 days omeprazole PO Take 40 mg by mouth Active daily. loratadine-pseudoeph Take 1 tablet by Active edrine 10-240 mg per mouth daily. XR tablet (24 hour) lisinopril 10 mg Take 1 tablet (10 30 tablet 0 03/15/2017 Active tablet mg total) by mouth daily. OTHER Take 1 tablet by Active mouth 2 times daily. Hempt Extract multivitamin tablet Take 1 tablet by Active mouth daily. budesonide-formotero Use 2 Puffs by 10.2 g 11 04/01/2017 Active l (SYMBICORT) inhalation 2 times 160-4.5 daily. mcg/Actuation inhaler docusate 100 mg Take 1 capsule (100 50 capsule 1 04/08/2017 Active capsule mg total) by mouth 2 times daily. HYDROmorphone 2 mg Take 1-2 tablets 60 tablet 0 04/08/2017 Active tablet (2-4 mg total) by mouth every 4 hours as needed for pain. sennosides 8.6 mg Take 1-2 tablets 50 tablet 1 04/08/2017 Active tablet (8.6-17.2 mg total) by mouth 2 times daily. Active Problems Problem Noted Date Renal cell carcinoma of left kidney 04/05/2017 HARLAN (obstructive sleep apnea) 04/01/2017 Preoperative cardiovascular examination 03/28/2017 Obesity, morbid, BMI 50 or higher 03/04/2017 COPD (chronic obstructive pulmonary disease) 03/04/2017 Type 2 diabetes mellitus 03/04/2017 Most Recent Encounters Date Type Specialty Providers Description 05/01/2017 Telephone Cancer Center Deena Epperson Chief Comp: Post-op Problem 04/10/2017 Orders/Notes Urology Agustín Marcial Dx: Renal carcinoma, MD [place] left (Primary Dx) 04/10/2017 Nurse Triage Care Coordination Angella Frye Chief Comp: SHELDON Posada RNheel sprayer first Follow-up Call 04/09/2017 Pharmacy Visit 04/05/2017 [facility] Agustín Marcial Dx: Left renal mass [...] Chronic Encounter Billg - Defo obstructive Verena Morin, pulmonary diseaseMD unspecified COPD type 04/01/2017 Office Visit Cardiac Rebecca Mckeon Chief Comp: Patient Rehabilitation S, DO Reported Reason For Visit 04/01/2017 [facility] Wesley Hernandez MD Dx: Dyspnea on Encounter Steffanie Llamas MD 04/01/2017 Ancillary Orders Internal Medicine - Gabriella Cardozo, Dx: Dyspnea on Specialty MD exertion (Primary Dx) 04/01/2017 Orders/Notes Med Pulmonary Martha Jurado, Dx: Chronic ASSISTANT REAL ESTATE MANAGER obstructive pulmonary disease, unspecified COPD type (Primary [...] MD Namrata (Primary Dx) 02/28[facility]2017 [facility]: [facility] ([facility] Dx) Teresa Rivas, ASSISTANT REAL ESTATE MANAGER 02/26/2017 Anesthesia Event General Surgery Teresa Trinidad, ASSISTANT REAL ESTATE MANAGER 02/19/2017 Hospital Radiology Mario Betancourt, Chief Comp: Patient Encounter Reported Reason For Visit 02/18/2017 Orders/Notes Urology Agustín Marcial MD 02/15/2017 Hospital Radiology Abu-Younenita, Dx: Left renal mass Encounter Gely Rivas MD 02/07/2017 [facility] [place], Chief Comp: Ana Luisa Oneill RN Appointment [...] Appointment Cancer Center Nicola Ellis MD [address] [place] [address] [phone] (Fax) Chief Comp: Patient Yanni Harding, [facility] [address] [place] [address] [phone] (Fax) Reported Reason For Visit 05/09/2017 Appointment Urology Oncology Agustín Marcial MD Chief Comp: Patient [address] [facility] [place] [address] Visit [phone] (Fax) 06/20/2017 Appointment Respiratory Therapy Default, Other Billg Chief Comp : Patient - Defo Reported Reason For [address] [facility] [place] [address] [phone] (Fax) 06/20/2017 Appointment Med Pulmonary Default, Other Billg - Defo [address] [place] [address] [phone] (Fax) Chief Comp: Patient Clinic, Obstructive Pulmonary [...] Location: MAIN OR OR Room: MAIN OR Service: Urology Log ID: [id number] Surgeon: Surgeon(s) and Role: * Agustín Marcial MD - Primary * Sony Patino MD - Resident - Assisting Staff Information: Scrub Nurse: Valery Perkins RN Circulating Nurse: Yadi Lui RN; Lemuel Azevedo RN; Jocy Anders RN; Valery Perkins RN Manufacturing Specialist- Scrub: Victor Manuel Morin; Miriam Sutherland; Garry [...] Implant Name Type Inv. Item Serial No. Branch Library Clerk Lot No. LRB No. Used Action STAPLE ENDO GIA45-2.5 ROTICULATOR MULTIFIRE LOADING UNIT - [id number] ENDO GIA45-2.5 ROTICULATOR MULTIFIRE LOADING UNITAUTOSUTURE [id number] Left 1 Implanted STAPLE ENDO GIA45-2.5 ROTICULATOR MULTIFIRE LOADING UNIT - [id number] ENDO GIA45-2.5 ROTICULATOR MULTIFIRE LOADING UNITAUTOSUTURE [id number] Left 1 Implanted STAPLE ENDO GIA45-2.5 ROTICULATOR MULTIFIRE LOADING UNIT - [id number] STAPLE ENDO GIA45-2.5 ROTICULATOR MULTIFIRE LOADING UNIT AUTOSUTURE [id number] Left 1 Implanted Specimens: ID Type Source [...] the end of the case. A 14 [place] Bonilla catheter was inserted into the bladder. At this point the patient was placed in a flank position with the left side up. The table was flexed a mild to moderate amount to open the flank. Patient's up arm was supported by a Showroomprive arm board support. The patient was secured [...] mm robotic port. A 12 mm Airseal executive staff assistant port was then placed cranial and [...] more difficult than typical. A 5 mm executive staff assistant port was then placed caudal and [...] edited note as above. Agustín Marcial MD Oil Pit Attendant, Department of Urology [facility] RED BLOOD CELLS DISPENSE FROM BLOOD BANK (04/08/2017 2:14 AM) Component Value Range Blood Coding System [id number] Blood Product Volume 325 Blood Product ABORH B Pos Blood Unit Number [id number] BLOOD DISPENSE STATUS RET Blood Product Type Red Blood Cells Blood Product Code G6684P38 Blood Coding System [id number] Blood Product Volume 325 Blood Product ABORH B Pos Blood Unit Number [id number] BLOOD DISPENSE STATUS RET Blood Product Type Red Blood Cells Blood Product Code [id number] ECG - EKG 12 LEAD (04/07/2017 12:01 [...] Value Range Case Report Surgical Pathology Case: [id number] Authorizing Provider:Agustín Marcial MDCollected: 04/05/2017 07:15 PM Ordering Location: [...] labeled with Tushar Humphrey, hospital number, and "Left Kidney" is a 730 [...] renal vein margin.The mass has a central dsuoza-justice, stellate area of discoloration with no significant [...] Neutrophils-Auto Diff 69.0 % Neutrophils-Auto Diff 7850(H) 8991-1233 /MM3 % Lymphocytes-Auto Diff 22.5 % Lymphocytes-Auto [...] Abnormality Status --------- ------ CBC (COMPLETE BLOOD COUNT)[[id number]] AbnormalFinal result DIFFERENTIAL[[id number]] AbnormalFinal result Please view results for these [...] (04/01/2017 8:53 AM)PET MYOCARDIAL PERFUSION REST& STRESS (46305) (04/01/2017 8:53 AM) Impressions Impression: 1. Normal stress myocardial perfusion with no evidence of inducible hypoperfusion; LVEF=58%. 2. ECG interpretation is reported separately. Narrative Procedure: PET MYOCARDIAL PERFUSION REST & STRESS (47402) Indication: Dyspnea on exertion; 56 years old [...] Procedure: PET MYOCARDIAL PERFUSION REST & STRESS (73191) Indication: Dyspnea on exertion; 56 years old [...] For adult chronic CHF patients according to [place] [employer] (NYHA) Functional Class for NT-proBNP levels in pg/mL: 6na03ar Mean percentile percentile Class I: 1015 097888 Class II:[id number] Class III: 4772512 74192 Class IV:5132910 35488 Among patients with dyspnea, NT-proBNP is highly [...] 7:05 AM)US GUIDED NEEDLE BIOPSY, RENAL ( [id number],12803) (02/15/2017 10:26 AM) Impressions Impression: 1. Successful ultrasound-guided core biopsy of left renal mass without immediate complication. --- Final --- Narrative [facility] Department of Radiology Ultrasound Division [address] [place] [address] ULTRASOUND REPORT NAME:TUSHAR HUMPHREY Date of Service: 02/15/2017 MRN NO.: [id number] Date: 02/15/2017 Patient's : 1960 Resident/Tech: [id number] [...] the standard instruction sheet before discharge. Preprocedure FH=935/93, YU=143 ; Postprocedure KZ=145/91, GE=326. Procedure Note Danilo, Incoming Imaging Results - SatFeb 15, 2017 11:00 AM CDT [facility] Department of Radiology Ultrasound Division [address] [place] [address] ULTRASOUND REPORT NAME: TUSHAR HUMPHREY Date of Service: 02/15/2017 MRN NO.: [id number] Review Date: 02/15/2017 Patient's : 1960 Resident/Tech: [...] the standard instruction sheet before discharge. Preprocedure TN=434/93, ZF=711 ; Postprocedure TC=529/91, XT=457. IMPRESSION Impression: 1. Successful ultrasound-guided core biopsy of left renal mass without immediate complication. --- Final --- US RETROPERITONEAL LIMITED (01/31/2017 5:00 PM) Impressions Impression: 1. Superior pole left renal mass, highly concerning for renal cell cancer. This is amenable for US guided biopsy. --- Final --- Narrative [facility] Department of Radiology Ultrasound Division [address] [place] [address] ULTRASOUND REPORT NAME:TUSHAR HUMPHREY Date of Service: 01/31/2017 MRN NO.: [id number] Date: 01/31/2017 Patient's : 1960 Resident/Tech: [id number] [...] - Theresa Jan 31, 2017 6:13 PM [facility] Department of Radiology Ultrasound Division [place] [address] ULTRASOUND REPORT NAME: TUSHAR HUMPHREY Date of Service: 01/31/2017 MRN NO.: [id number] Review Date: 01/31/2017 Patient's : 1960 Resident/Tech: [...]
== END 2017-05-01 13:16 | disposition home or self-care (01) ==
LOC: ER 12:35
DX: Z90.5 Acquired absence of kidney (principal)

== ENCOUNTER 2017-12-03 06:55 | Day surgery (SDC) | payer MEDICAID ==
[~2017-12-03 06:55] MED LIST: RINGER'S SOLUTION,LACTATED 1,000 ML IV PRN
--- NOTE | 2017-12-03 10:37 | OR ---
Operative Report - Dictated Report Narrative: Date: 12/03/2017 Preoperative diagnosis: Screening colonoscopy Postoperative diagnosis: Moderate diverticulosis Procedure: Total colonoscopy Staff surgeon: Melquiades Saha MD Anesthesia: MAC per LAN ANALYST EBL: None Specimens: None Description: After informed consent and appropriate sedation the patient was placed in the left lateral decubitus position. Flexible fiberoptic video colonoscope was introduced and advanced under direct vision without difficulty to the cecum. The usual landmarks were identified and cecal cannulation was also confirmed by palpation. Preparation was fair and good views were obtained. The findings were a normal cecum, ascending colon, hepatic flexure, transverse colon, splenic flexure, descending colon demonstrated some diverticuli as well as the sigmoid colon but these segments were otherwise without abnormality, and normal rectum and retroflexed view. The mucosal color, vasculature, and texture were normal throughout. No suspicious masses were seen. The patient tolerated procedure well without apparent complications and was discharged from the endoscopy suite in stable condition.
[2017-12-03 10:59] VITALS: BP 176/103
== END 2017-12-03 06:56 | disposition home or self-care (01) ==
LOC: AMB 06:55
PROVIDERS: ATTEND Specialist
PROC: 0DJD8ZZ Inspection of Lower Intestinal Tract, Via Natural or Artificial Opening Endoscopic (ICD-10-PCS; principal; 2017-12-03)
DX: Z12.11 Encounter for screening for malignant neoplasm of colon (principal); K57.30 Diverticulosis of large intestine without perforation or abscess without bleeding; E11.9 Type 2 diabetes mellitus without complications; J44.9 Chronic obstructive pulmonary disease, unspecified; E78.5 Hyperlipidemia, unspecified; G47.33 Obstructive sleep apnea (adult) (pediatric); Z87.891 Personal history of nicotine dependence; E66.01 Morbid (severe) obesity due to excess calories; Z68.43 Body mass index [BMI] 50.0-59.9, adult